=== PATIENT | female | born 1985 | race Caucasian/White ===

== ENCOUNTER 2018-01-26 09:27 | Outpatient (CLI) | payer BC ==
[2018-01-26 10:50] VITALS: PULSE 68; RESP 18; TEMP 97.9
[2018-01-26 10:50] LABS: Appearance,Urine Clear (Clear); Bacteria,Urine Rare /hpf; Bilirubin,Urine Negative (Negative); Blood,Urine Negative (Negative); Color,Urine Yellow; Glucose,Urine (UA) Negative (Negative); Ketones,Urine Negative (Negative); Leukocyte Esterase,Urine Negative (Negative); Nitrite,Urine Negative (Negative); Protein,Urine 2+ (Negative); RBC,Urine <1 /hpf (0-5); Specific Gravity,Urine 1.009 (1.001-1.035); Squamous Epithelial Cell,Urine <1 /hpf (0-4); Urobilinogen,Urine <2.0 mg/dL (<2.0); WBC,Urine 2 /hpf (0-5)
[2018-01-26 10:59] LABS: Basophils % (A) 0 %; Eosinophils # (A) 0.1 k/uL (0-0.7); Eosinophils % (A) 1 %; HCT 41.5 % (34.0-46.0); HGB 14.2 gm/dL (11.4-16.0); Lymphocytes # (A) 1.3 k/uL (1.0-4.8); Lymphocytes % (A) 11 %; MCH 30.1 pg (25.0-35.0); MCHC 34.3 g/dL (31.0-37.0); MCV 87.7 fL (80.0-100.0); Mean Platelet Volume 8.4; Monocytes # (A) 0.7 k/uL (0-1.0); Monocytes % (A) 6 %; Neutrophils # (A) 9.8 k/uL (1.3-7.7); Neutrophils % (A) 82 %; Platelet Count 137 k/uL (150-450); RBC 4.73 m/uL (3.80-5.40); RDW 13.5 % (11.5-15.5); WBC 11.9 k/uL (3.8-10.6)
[2018-01-26 11:12] LABS: ALT 158 U/L (9-52); AST 156 U/L (14-36); Blood Urea Nitrogen 14 mg/dL (7-17); LDH 803 U/L (313-618); Uric Acid 5.4 mg/dL (3.7-7.4)
[2018-01-26] MEDS ORDERED: LACTATED RINGERS 1,000 ML IV SCH (11:15)
[2018-01-26] MEDS ORDERED: MAGNESIUM SULFATE-WATER PMX 4 GM in WATER FOR INJECTION 50 50ML.BAG IVPB STA (11:21)
[2018-01-26] MEDS ORDERED: MAGNESIUM SULFATE-D5W PMX 1 GM in DEXTROSE/WATER 1 100ML.BAG IVPB SCH (11:30)
[2018-01-26] MEDS ORDERED: BETAMET ACET-BETAMETH SOD PHOS 6 MG/ML VIAL IM SCH (11:30)
--- NOTE | 2018-01-26 11:51 | US ---
EXAMINATION TYPE: US OB >= 14 wk fetus DATE OF EXAM: 01/26/2018 COMPARISON: None CLINICAL HISTORY: 32-year-old female referred for COMPLETE U/S. Patient HAS ELEVATED B/P TECHNIQUE: Transabdominal (TA) FINDINGS: GESTATIONAL AGE / DATING Physician Established: (29 weeks/0 days) EDC: 04/13/28 Dates by LMP: (29 weeks/0 days) EDC: 04/13/18 Dates by First Scan: No previous at this location Dates by Current Scan: (28 weeks/4 days) EDC: 04/16/18 Beta HCG (if available): SURVEY IUP: Single PLACENTA: Fundal. There appears to be an accessory lobe anteriorly. PREVIA: No Previa ANTELMO: 10.10 cm CERVICAL LENGTH (transabdominal: norm > 3.0cm): Not well seen, estimated at 3.3 cm BIOMETRY PRESENTATION: Breech LIE: Longitudinal BPD: 7.0 cm 28 weeks / 1 days (-1.07 standard deviation) HC: 26.2 cm 28 weeks / 4 days (-1.35 standard deviation) AC: 24.0 cm 28 weeks / 2 days (-0.75 standard deviation) FL: 5.5 cm 29 weeks / 1 days (-0.37 standard deviation) ESTIMATED WEIGHT IN GRAMS: 1244 grams ESTIMATED WEIGHT IN LBS/OZ: 2lbs. 12 oz. WEIGHT PERCENTAGE BASED ON ESTABLISHED DATES: 22% HC/AC: 1.1 FL/AC: 23 HEART RATE: 139 bpm RHYTHM: Normal [employer] notes: Succenturiate vs bilobed placenta. IMPRESSION: 1. Single live intrauterine with estimated gestational age of 29 weeks 0 days by LMP. Curre nt ultrasound biometry is smaller but concordant (28 weeks 4 days) placing the child at the 22nd perc entile for weight. 2. ANTELMO lower end of normal (10.1 cm). 3. Fundal placenta with an anterior succenturiate lobe. No placenta previa. 4. Note that survey was not performed due to the emergent nature of the exam.
[2018-01-26] MEDS ORDERED: MAGNESIUM SULFATE-WATER PMX 20 GM in WATER FOR INJECTION 1 500ML.BAG IV SCH (12:00)
--- NOTE | 2018-01-26 12:15 | P.HPOB ---
History of Present Illness H&P Date: 01/26/18 Chief Complaint: Epigastric pain This patient is a pleasant 32-year-old 1 para 0 female estimated date of confinement 04/13/2018 estimated gestational age 29-0/7 weeks which is confirmed by ultrasound who called the office to this morning with complaints of upper abdominal pain. Patient was sent to labor and delivery and blood pressures here have ranged from 148-167/97-112. Patient's blood pressures are 100/60 and 120/70. Patient denies headaches, blurry vision. This has been under the care of Dr. Martins and had appears to be uncomplicated previously. Evaluation here shows significant liver function elevations and elevated lactate dehydrogenase. Patient also has 2+ protein and platelets are 137. Nonstress testing is reactive. Obstetrical ultrasound shows a appropriately grown fetus with normal ANTELMO. Review of Systems Constitutional: Reports as per HPI Gastrointestinal: Reports heartburn, Reports indigestion Genitourinary: Reports as per HPI, Reports Menstruation: Reports amenorrhea Past Medical History Past Medical History: No Reported History Additional Past Medical History / Comment(s): Patient has a history of attention deficit disorder and irritable bowel syndrome. History of Any Multi-Drug Resistant Organisms: None Reported Additional Past Surgical History / Comment(s): Inguinal hernia repair Past Anesthesia/Blood Transfusion Reactions: No Reported Reaction Past Psychological History: No Psychological Hx Reported Smoking Status: Never smoker Past Alcohol Use History: None Reported Past Drug Use History: None Reported Medications and Allergies Home Medications Medication Instructions Recorded Confirmed Type Acetaminophen Tab [Tylenol] 01/26/18 History Pnv,Calcium 72/Iron/Folic Acid 1 tab PO DAILY 01/26/18 01/26/18 History [ Plus Tablet] diphenhydrAMINE HCL [Benadryl] 25 mg PO HS 01/26/18 01/26/18 History Allergies Allergy/AdvReac Type Severity Reaction Status Date / Time codeine Allergy Abdominal Verified 01/26/18 09:49 Pain Exam - Vital Signs Vital signs: Vital Signs Temp Pulse Resp Pulse Ox 01/26/18 09:54 97.9 F 68 18 98 Intake and Output 01/25/18 01/26/18 01/26/18 22:59 06:59 14:59 Other: Weight 84.822 kg - OBG Physical Exam Abdomen: bowel sounds normal, no diffuse tenderness, no bruit present, no guarding noted, no hepatomegaly, no splenomegaly, no mass Results Obstetrical ultrasound shows a appropriate grown fetus 1244 g with normal ANTELMO. Result Diagrams: 01/26/18 10:46 01/26/18 10:46 Abnormal Lab Results - Last 24 Hours (Table) 01/26/18 01/26/18 01/26/18 Range/Units 09:55 10:46 10:46 WBC 11.9 H (3.8-10.6) k/uL Plt Count 137 L (150-450) k/uL Neutrophils # 9.8 H (1.3-7.7) k/uL AST 156 H (14-36) U/L ALT 158 H (9-52) U/L Lactate Dehydrogenase 803 H (313-618) U/L Urine Protein 2+ H (Negative) Urine Bacteria Rare H (None) /hpf Assessment and Plan Assessment: This is a pleasant 32-year-old 1 para 0 female 29-0/7 weeks gestation who is admitted to labor and delivery for evaluation of epigastric pain and evaluation is consistent with severe preeclampsia and evolving HELPP syndrome. I have contacted Dr. Christopher Hobson at [facility] and he has agreed to accept her transfer. She is already being treated with magnesium sulfate and is received one dose of Celestone. Dr. Hobson and I discussed treatment of her blood pressure at this time and he is recommended waiting at this time on any antihypertensives because we are starting magnesium therapy. I have had a long discussion with the patient, her , and the family in the understand the severity of this condition and urgency of her being treated and transferred. He agreed to transfer to [facility]. (1) Severe pre-eclampsia Current Visit: Yes Status: Acute Code(s): O14.10 - SEVERE PRE-ECLAMPSIA, UNSPECIFIED TRIMESTER SNOMED Code(s): 92721366 (2) HELLP syndrome (HELLP), third trimester Current Visit: Yes Status: Acute Code(s): O14.23 - HELLP SYNDROME (HELLP), THIRD TRIMESTER SNOMED Code(s): 25864961
--- NOTE | 2018-01-26 12:23 | P.DS ---
Providers Expected date of discharge: 01/26/18 Attending physician: Eleuterio Bailey Primary care physician: Stated None - Discharge Diagnosis(es) (1) Severe pre-eclampsia Current Visit: Yes Status: Acute (2) HELLP syndrome (HELLP), third trimester Current Visit: Yes Status: Acute Hospital Course: Please see dictated H&P for intimate details of this patient's admission. Brief summary this is a pleasant 32-year-old 1 para 0 female 29-0/7 weeks gestation who is admitted to labor and delivery with complaints of epigastric pain. Patient's blood pressure is elevated and preeclampsia labs were significantly elevated with the impression of evolving help syndrome. Patient was placed on magnesium sulfate and given a dose of Celestone. I contacted Dr. Christopher Hobson at [facility] and arrange transfer immediately for further care. Patient was transferred via EMS in stable condition. Patient Condition at Discharge: Stable Plan - Discharge Summary New Discharge Prescriptions: No Action Pnv,Calcium 72/Iron/Folic Acid [ Plus Tablet] 1 tab PO DAILY Acetaminophen Tab [Tylenol] diphenhydrAMINE HCL [Benadryl] 25 mg PO HS Discharge Medication List Acetaminophen Tab [Tylenol] 01/26/18 [History] Pnv,Calcium 72/Iron/Folic Acid [ Plus Tablet] 1 tab PO DAILY 01/26/18 [ History] diphenhydrAMINE HCL [Benadryl] 25 mg PO HS 01/26/18 [History] Discharge Disposition: OTHER INSTITUTION NOT DEFINED
--- NOTE | 2018-01-26 16:22 | P.MSEPDOC ---
Presenting Problems - Arrival Data Date of Arrival on Unit: 01/26/18 Time of Arrival on Unit: 09:37 Mode of Transport: Portable - Complaint OB-Reason for Admission/Chief Complaint: Other Comment: pt arrived c/o upper abd cramping and heaviness feeling in upper abd area when she breaths inward withshe states some sob on inhalling Medical History - Information : 1 Para: 0 Term: 0 : 0 Abortions: Spontaneous or Elective: 0 Number of Living Children: 0 - Gestational Age Gestational Age by VALENCIA (wks/days): 29 Weeks and 0 Days Review of Systems - Review of Systems Constitutional: No problems Breast: No problems ENT: No problems Cardiovascular: No problems Respiratory: No problems Gastrointestinal: Diarrhea Genitourinary: No problems Musculoskeletal: No problems Neurological: No problems Skin: No problems Comment: pt c/o having diarrhea today Vital Signs - Temperature Temperature: 97.9 F Temperature Source: Oral - Pulse Right Brachial Pulse Rate: 68 Pulse Assessment Method: Automatic Cuff - Respirations Respiratory Rate: 18 Oxygen Delivery Method: Room Air O2 Sat by Pulse Oximetry: 98 Medical Screen Scoring (Pre) - Cervical Exam Dilation: 0 cm = 0 Membranes: Intact - Uterine Contractions Frequency: > 5 minutes apart = 1, < 36 weeks = 6 Duration: N/A - Maternal Vital Signs Maternal Temperature: N/A Maternal Blood Pressure: >159/109 = 8 Signs of Preeclampsia: Epigastric Pain = 1 Maternal Respirations: N/A - Pain Assessment Pain Location and Character: Abdomen Pain Scale Used: Numeric (1 - 10) Pain Intensity: 3 Pain Management Goal: 1 Pain Description: Cramping, Pressure Pain Radiation Location: n/a Pain Frequency: Occasional Pain Duration: 30 Pain Duration Units: Minutes Pain Behavior: Vocalization Pain Aggravating Factors: Breathing, Position Non-Pharmacological Interventions: Position/Reposition - Maternal Trauma Maternal Trauma: N/A - Assessment Baseline FHR: 140 Heart Rate - NICHD Category: Category I (Normal) = 0 NST: Reactive Position: N/A - Total Score Total Score (Pre): 16 Physician Notification (Pre) - Physician Notified Physician Notified Date: 01/26/18 Physician Notified Time: 10:10 Spoke With: dr isaac Milligan Order Received: Yes - Notification Comment Comment: preeclampsia lab orders urinalysis, and complete ob u/s Physician Notification (Post) - Physician Notified Physician Notified Date: 01/26/18 New Order Received: Yes - Notification Comment Comment: pt being transferred to [facility] for dr greenfield care per dr cortes Disposition - Disposition OB Disposition: Transfer to other dept./facility I agree with the RN Medical Screening Exam: Yes Risk & Benefit of care provided described in d/c instruction: Yes Diagnosis: SEVERE PRE-ECLAMPSIA, THIRD TRIMESTER
== END 2018-01-26 12:45 | disposition other institution (70) ==
LOC: FBPOP 09:27
PROVIDERS: ATTEND Obstetrics & Gynecology
DX: O14.13 Severe pre-eclampsia, third trimester (principal); Z3A.29 29 weeks gestation of pregnancy
CPT/HCPCS: 59025; 99215; 96361; 96365; 96372; 82565; 83615; 84450; 84460; 84520; 84550; 85025; 81001; 76805; J0702; J3475 ×2

== ENCOUNTER 2019-09-27 16:33 | Emergency (ER) | payer BC ==
[2019-09-27] MEDS ORDERED: SODIUM CHLORIDE 0.9% 500 ML 500 ML IV ONE (18:02)
[2019-09-27 19:51] LABS: Appearance,Urine Clear (Clear); Basophils % (A) 0 %; Bilirubin,Urine Negative (Negative); Blood,Urine Negative (Negative); Color,Urine Light Yellow; Eosinophils # (A) 0.1 k/uL (0-0.7); Eosinophils % (A) 1 %; Glucose,Urine (UA) Negative (Negative); HCT 43.9 % (34.0-46.0); Ketones,Urine Negative (Negative); Leukocyte Esterase,Urine Negative (Negative); Lymphocytes # (A) 1.5 k/uL (1.0-4.8); Lymphocytes % (A) 17 %; MCH 31.6 pg (25.0-35.0); MCV 92.7 fL (80.0-100.0); Monocytes # (A) 0.4 k/uL (0-1.0); Monocytes % (A) 5 %; Neutrophils # (A) 6.8 k/uL (1.3-7.7); Neutrophils % (A) 76 %; Nitrite,Urine Negative (Negative); Platelet Count 298 k/uL (150-450); Protein,Urine Negative (Negative); RBC 4.74 m/uL (3.80-5.40); Specific Gravity,Urine 1.004 (1.001-1.035); Urobilinogen,Urine <2.0 mg/dL (<2.0)
[2019-09-27 20:00] LABS: ALT 62 U/L (9-52); AST 41 U/L (14-36); African American GFR (CKD) >90 (>60 ml/min/1.73 sqM); Albumin 4.6 g/dL (3.5-5.0); Alkaline Phosphatase 58 U/L (38-126); Anion Gap 8 mmol/L; Blood Urea Nitrogen 12 mg/dL (7-17); Calcium 9.6 mg/dL (8.4-10.2); Carbon Dioxide 27 mmol/L (22-30); Chloride 105 mmol/L (98-107); Glucose 99 mg/dL (74-99); Non-African American GFR(CKD) >90 (>60 ml/min/1.73 sqM); Potassium 4.1 mmol/L (3.5-5.1); Sodium 140 mmol/L (137-145); Total Bilirubin 0.6 mg/dL (0.2-1.3); Total Protein 7.9 g/dL (6.3-8.2)
--- NOTE | 2019-09-27 20:05 | US ---
EXAMINATION TYPE: US transvaginal DATE OF EXAM: 09/27/2019 COMPARISON: NONE CLINICAL HISTORY: Pain x 2 days. Vaginal bleeding. HX . . TECHNIQUE: Transvaginal (TV). Date of LMP: 08/06/2019 EXAM MEASUREMENTS: Uterus: 7.6 x 5.2 x 4.3 cm Endometrial Stripe: 0.34 cm Right Ovary: 3.1 x 1.6 x 1.8 cm Left Ovary: 2.9 x 1.7 x 1.5 cm 1. Uterus: Anteverted Hyperechoic area seen right uterus measurin.4 x 0.2 x 0.2 cm. Small amou nt of hypoechoic fluid seen superior to uterus. 2. Endometrium: No acute process. 3. Right Ovary: Subcentimeter anechoic areas seen. Arterial waveform seen. Limited venous waveform. Difficulty obtaining venous waveform. 4. Left Ovary: Subcentimeter anechoic areas seen. Arterial and venous waveforms obtained. 5. Bilateral Adnexa: Appear wnl 6. Posterior cul-de-sac: Fluid is seen. IMPRESSION: NO DEFINITE ACUTE PROCESS.
--- NOTE | 2019-09-27 20:33 | ED ---
General Adult HPI - General Chief complaint: Vaginal Bleeding Stated complaint: Poss miscarriage Time Seen by Provider: 09/27/19 17:37 Source: patient, RN notes reviewed, old records reviewed Mode of arrival: ambulatory Limitations: no limitations - History of Present Illness Initial comments: 33-year-old female patient presents to ED for chief complaint of vaginal bleeding. Patient reports that she is a . Patient reports that she stopped taking oral contraceptives approximately 6 weeks ago. Patient reports that she has not had a partial. Since. Patient reports that she passed a large blood clot yesterday. Had a lot of vaginal bleeding today as well. Patient reports that has decreased to spotting at this point. Patient force that she h as had some mild dizziness last 2 days. Reports that the week before she was having some symptoms that she had previous surgery and she is . This includes some mild nausea in the morning. Patient reports that she has taken a test almost everyday and has been negative. Denies any other complaints at this time. Systemic: Pt denies fatigue, fever/chills, rash. Pt denies weakness, night sweats, weight loss. Neuro: Pt denies headache, visual disturbances, syncope or pre-syncope. HEENT: Pt denies ocular discharge or irritation, otalgia, rhinorrhea, pharyngitis or notable lymphadenopathy. Cardiopulmonary: Pt denies chest pain, SOB, heart palpitations, dyspnea on exertion. Abdominal/GI: Pt denies abdominal pain, n/v/d. : Pt denies dysuria, burning w/ urination, frequency/urgency. Denies new onset urinary or bowel incontinence. MSK: Pt denies myalgia, loss of strength or function in extremities. Neuro: Pt denies new onset weakness, paresthesias. - Related Data Home Medications Medication Instructions Recorded Confirmed Acetaminophen Tab [Tylenol] 01/26/18 Pnv,Calcium 72/Iron/Folic Acid 1 tab PO DAILY 01/26/18 01/26/18 [ Plus Tablet] diphenhydrAMINE HCL [Benadryl] 25 mg PO HS 01/26/18 01/26/18 Allergies Allergy/AdvReac Type Severity Reaction Status Date / Time codeine Allergy Abdominal Verified 09/27/19 17:09 Pain Review of Systems ROS Statement: Those systems with pertinent positive or pertinent negative responses have been documented in the HPI. ROS Other: All systems not noted in ROS Statement are negative. Past Medical History Past Medical History: No Reported History Additional Past Medical History / Comment(s): Patient has a history of attention deficit disorder and irritable bowel syndrome. History of Any Multi-Drug Resistant Organisms: None Reported Past Surgical History: Section, Hernia Repair Additional Past Surgical History / Comment(s): Inguinal hernia repair Past Anesthesia/Blood Transfusion Reactions: No Reported Reaction Past Psychological History: ADD/ADHD, Anxiety, Depression Smoking Status: Never smoker Past Alcohol Use History: Occasional Past Drug Use History: None Reported General Exam - General Exam Comments Initial Comments: Constitutional: NAD, AOX3, Pt has pleasant affect. HEENT: NC/AT, trachea midline, neck supple, no lymphadenopathy. Posterior pharynx non erythematous, without exudates. External ears appear normal, without discharge. Mucous membranes moist. Eyes PERRLA, EOM intact. There is no scleral icterus. No pallor noted. Cardiopulmonary: RRR, no murmurs, rubs or gallops, no JVD noted. Lungs CTAB in anterior and posterior britt. No peripheral edema. Abdominal exam: Abdomen soft and non-distended. Abdomen non-tender to palpation in all 4 quadrants. Bowel sounds active in LLQ. No hepatosplenomegaly. No ecchymosis Neuro: CN II-XII intact. No nuchal rigidity. No raccon eyes, no garcia sign, no hemotympanum. No cervical spinal tenderness. MSK: No posterior calf tenderness bilaterally, homans sign negative bilaterally. Posterior tibialis and radial pulse +2 bilaterally. Sensation intact in upper and lower extremities. Full active ROM in upper and lower extremities, 5/5 stregnth. Limitations: no limitations Course Vital Signs 09/27/19 17:05 Temperature 98.0 F Pulse Rate 97 Respiratory 18 Rate Blood Pressure 139/87 O2 Sat by Pulse 100 Oximetry Medical Decision Making - Medical Decision Making 33-year-old female patient presents to ED for chief complaint of vaginal bleeding. Patient reports that she is a . Patient reports that she stopped taking oral contraceptives approximately 6 weeks ago. Patient reports that she has not had a partial. Since. Patient reports that she passed a large blood clot yesterday. Had a lot of vaginal bleeding today as well. Patient reports that has decreased to spotting at this point. Patient force that she has had some mild dizziness last 2 days. Reports that the week before she was having some symptoms that she had previous surgery and she is . This includes some mild nausea in the morning. Patient reports that she has taken a test almost everyday and has been negative. Denies any other complaints at this time. Patient vital signs stable, afebrile. Laboratory investigations are non-impressive. Hb 15. UA negative. HCG negative. EKG nonischemic. Transvaginal vaginal ultrasound did not display definite acute process. Patient not experiencing any pain. Patient likely experiencing irregular menses due to recent DC of oral contraceptives. Will follow up with PCP initially, and ob if irregular bleeding continues. Will return to ER if condition worsens. Case discussed with Dr. Cosby. - Lab Data Result diagrams: 09/27/19 18:55 09/27/19 18:55 Lab Results 09/27/19 09/27/19 09/27/19 Range/Units 18:55 18:55 18:55 WBC 9.0 (3.8-10.6) k/uL RBC 4.74 (3.80-5.40) m/uL Hgb 15.0 (11.4-16.0) gm/dL Hct 43.9 (34.0-46.0) % MCV 92.7 (80.0-100.0) fL MCH 31.6 (25.0-35.0) pg MCHC 34.0 (31.0-37.0) g/dL RDW 12.0 (11.5-15.5) % Plt Count 298 (150-450) k/uL Neutrophils % 76 % Lymphocytes % 17 % Monocytes % 5 % Eosinophils % 1 % Basophils % 0 % Neutrophils # 6.8 (1.3-7.7) k/uL Lymphocytes # 1.5 (1.0-4.8) k/uL Monocytes # 0.4 (0-1.0) k/uL Eosinophils # 0.1 (0-0.7) k/uL Basophils # 0.0 (0-0.2) k/uL Sodium 140 (137-145) mmol/L Potassium 4.1 (3.5-5.1) mmol/L Chloride 105 (98-107) mmol/L Carbon Dioxide 27 (22-30) mmol/L Anion Gap 8 mmol/L BUN 12 (7-17) mg/dL Creatinine 0.76 (0.52-1.04) mg/dL Est GFR (CKD-EPI)AfAm >90 (>60 ml/min/1.73 sqM) Est GFR (CKD-EPI)NonAf >90 (>60 ml/min/1.73 sqM) Glucose 99 (74-99) mg/dL Calcium 9.6 (8.4-10.2) mg/dL Total Bilirubin 0.6 (0.2-1.3) mg/dL AST 41 H (14-36) U/L ALT 62 H (9-52) U/L Alkaline Phosphatase 58 (38-126) U/L Total Protein 7.9 (6.3-8.2) g/dL Albumin 4.6 (3.5-5.0) g/dL Urine Color Light Yellow Urine Appearance Clear (Clear) Urine pH 7.0 (5.0-8.0) Ur Specific [place] 1.004 (1.001-1.035) Urine Protein Negative (Negative) Urine Glucose (UA) Negative (Negative) Urine Ketones Negative (Negative) Urine Blood Negative (Negative) Urine Nitrite Negative (Negative) Urine Bilirubin Negative (Negative) Urine Urobilinogen <2.0 (<2.0) mg/dL Ur Leukocyte Esterase Negative (Negative) Urine HCG, Qual (Not Detectd) 09/27/19 Range/Units 18:55 WBC (3.8-10.6) k/uL RBC (3.80-5.40) m/uL Hgb (11.4-16.0) gm/dL Hct (34.0-46.0) % MCV (80.0-100.0) fL MCH (25.0-35.0) pg MCHC (31.0-37.0) g/dL RDW (11.5-15.5) % Plt Count (150-450) k/uL Neutrophils % % Lymphocytes % % Monocytes % % Eosinophils % % Basophils % % Neutrophils # (1.3-7.7) k/uL Lymphocytes # (1.0-4.8) k/uL Monocytes # (0-1.0) k/uL Eosinophils # (0-0.7) k/uL Basophils # (0-0.2) k/uL Sodium (137-145) mmol/L Potassium (3.5-5.1) mmol/L Chloride (98-107) mmol/L Carbon Dioxide (22-30) mmol/L Anion Gap mmol/L BUN (7-17) mg/dL Creatinine (0.52-1.04) mg/dL Est GFR (CKD-EPI)AfAm (>60 ml/min/1.73 sqM) Est GFR (CKD-EPI)NonAf (>60 ml/min/1.73 sqM) Glucose (74-99) mg/dL Calcium (8.4-10.2) mg/dL Total Bilirubin (0.2-1.3) mg/dL AST (14-36) U/L ALT (9-52) U/L Alkaline Phosphatase (38-126) U/L Total Protein (6.3-8.2) g/dL Albumin (3.5-5.0) g/dL Urine Color Urine Appearance (Clear) Urine pH (5.0-8.0) Ur Specific [place] (1.001-1.035) Urine Protein (Negative) Urine Glucose (UA) (Negative) Urine Ketones (Negative) Urine Blood (Negative) Urine Nitrite (Negative) Urine Bilirubin (Negative) Urine Urobilinogen (<2.0) mg/dL Ur Leukocyte Esterase (Negative) Urine HCG, Qual Not Detected (Not Detectd) - EKG Data -: EKG Interpreted by Me (and Dr Estrada ) EKG Comments: Ventricular rate 80,. Follow 110, QRS 94, QT/QTc 402/463. Sinus rhythm with sinus arrythemia, otherwise normal EKG. No concern for acute ischemia. Disposition Clinical Impression: Vaginal bleeding Disposition: HOME SELF-CARE Condition: Stable Instructions (If sedation given, give patient instructions): Dysmenorrhea (ED) Additional Instructions: Follow-up with primary care provider tomorrow. Return to ER if condition worsens in any way. Return to ER if heavy vaginal bleeding returns. Is patient prescribed a controlled substance at d/c from ED?: No Referrals: Benja Rice MD [Primary Care Provider] - 1-2 days
[2019-09-27 20:47] VITALS: BP 114/87; PULSE 87; RESP 16; TEMP 98.1
== END 2019-09-27 20:46 | disposition home or self-care (01) ==
LOC: EC 16:33
DX: N93.9 Abnormal uterine and vaginal bleeding, unspecified (principal); Z32.02 Encounter for pregnancy test, result negative; R42 Dizziness and giddiness; Z88.5 Allergy status to narcotic agent
CPT/HCPCS: 36415; 76830; 80053; 81003; 81025; 85025; 93005; 93975; 96360; 96361; 99285

== ENCOUNTER → 2020-05-08 | Outpatient (CLI) | payer BC | END | disposition home or self-care (01) | LOC: LABWHC1 13:46 | PROVIDERS: ATTEND Obstetrics & Gynecology | DX: Z34.81 Encounter for supervision of other normal pregnancy, first trimester (principal) | CPT/HCPCS: 36415; 82105; 82677; 84702; 86336 ==

== ENCOUNTER 2020-10-12 14:42 | Outpatient (CLI) | payer BC ==
--- NOTE | 2020-11-10 20:05 | P.MSEPDOC ---
Presenting Problems - Arrival Data Date of Arrival on Unit: 10/12/20 Time of Arrival on Unit: 14:42 Mode of Transport: Ambulatory Disposition - Disposition Discharge Date: 10/12/20 Discharge Time: 15:02 I agree with the RN Medical Screening Exam: No Case reviewed; plan agreed upon as documented in EMR&OBIX.: Yes Diagnosis: GESTATIONAL HTN W/O SIGNIFICANT PROTEINURIA, UNSP TRIMESTER
== END 2020-10-12 15:02 | disposition home or self-care (01) ==
LOC: FBPOP 14:42
PROVIDERS: ATTEND Obstetrics & Gynecology
DX: O13.3 Gestational [pregnancy-induced] hypertension without significant proteinuria, third trimester (principal); Z3A.00 Weeks of gestation of pregnancy not specified
CPT/HCPCS: 59025

== ENCOUNTER 2020-10-16 06:44 | Inpatient (IN) | payer BC ==
[2020-10-15 13:57] VITALS: BMI 29.9
--- NOTE | 2020-10-15 19:10 | P.HPOB ---
History of Present Illness H&P Date: 10/15/20 Chief Complaint: Previous section with unfavorable cervix. History of HELLP syndro This patient is a pleasant 34-year-old 2 para 1 female estimated date of confinement 10/21/2020 estimated gestational age 39-2/7 weeks who is presenting to labor and delivery for elective repeat section. Patient's history is that in her last she developed HELLP syndrome at 29 weeks and had a section and maternal- medicine. Patient initially wanted to have a trial of this however unfortunately has an unfavorable cervix and is now over 39 weeks and therefore recommended proceed with delivery, therefore by section. Patient's has been watched closely with weekly blood work and nonstress tests. She's been on a baby aspirin this and blood pressures have remained normal. Patient also had a marginal previa and a bilobed placenta. The previa did resolve. Review of Systems Genitourinary: Reports Menstruation: Reports amenorrhea Past Medical History Past Medical History: GERD/Reflux Additional Past Medical History / Comment(s): hx irritable bowel syndrome. past hx of excercise induced asthma, hx of HELLP syndrome and pre-eclampsia with first History of Any Multi-Drug Resistant Organisms: None Reported Past Surgical History: Section, Hernia Repair Additional Past Surgical History / Comment(s): Inguinal hernia repair x2 Past Anesthesia/Blood Transfusion Reactions: Previous Problems w/ Anesthesia Additional Past Anesthesia/Blood Transfusion Reaction / Comment(s): hx of hard time waking up Past Psychological History: ADD/ADHD, Anxiety Smoking Status: Never smoker Past Alcohol Use History: None Reported Past Drug Use History: None Reported - Past Family History Mother Family Medical History: No Reported History Medications and Allergies Home Medications Medication Instructions Recorded Confirmed Type Pnv,Calcium 72/Iron/Folic Acid 1 tab PO DAILY 01/26/18 10/15/20 History [ Plus Tablet] Cetirizine HCl [Zyrtec] 1 tab PO ONCE 10/12/20 10/15/20 History Acetaminophen [Tylenol] 650 mg PO HS 10/15/20 10/15/20 History Aspirin [Adult Low Dose Aspirin EC] 81 mg PO DAILY 10/15/20 10/15/20 History Cholecalciferol [Vitamin D3 (25 1,000 unit PO DAILY 10/15/20 10/15/20 History Mcg = 1000 Iu)] Omeprazole Magnesium [PriLOSEC OTC] 20 mg PO DAILY 10/15/20 10/15/20 History Allergies Allergy/AdvReac Type Severity Reaction Status Date / Time codeine Allergy Abdominal Verified 10/15/20 13:09 Pain Exam Intake and Output 10/15/20 10/15/20 10/15/20 06:59 14:59 22:59 Other: Weight 93.44 kg - OBG Physical Exam Abdomen: bowel sounds normal, no diffuse tenderness, no bruit present, no guarding noted, no hepatomegaly, no splenomegaly, no mass Vulva: both: normal Vagina: normal moisture, no discharge Cervix: no lesion (Cervix is closed and thick.), no discharge Uterus: enlarged (Fundal height 39 cm) Results blood work shows she is A positive, rubella immune, RPR nonreactive, hepatitis B negative, quad screen was negative, ultrasounds showed normal anatomy with bilobed placenta. Glucola was normal. Group B strep was negative. Assessment and Plan Assessment: This is a pleasant 34-year-old 2 para 1 female 39-2/7 week gestational age who presents for repeat section. Plan is repeat low transverse section. Patient I discussed the surgery and risks including risks of infection, bleeding, possible injury to bowel, bladder, vessels, and/or other organs. All the patient's questions are answered and a written consent is obtained. (1) 39 weeks gestation of Status: Acute Code(s): Z3A.39 - 39 WEEKS GESTATION OF SNOMED Code(s): 78748771 (2) Previous delivery affecting Status: Acute Code(s): O34.219 - MATERNAL CARE FOR UNSP TYPE SCAR FROM PREVIOUS DEL SNOMED Code(s): 770682556
[2020-10-16] MEDS ORDERED: CITRIC ACID-SODIUM CITRATE 15 ML CUP PO ONE (10:24)
[2020-10-16] MEDS ORDERED: LACTATED RINGERS 1,000 ML IV ONE (10:24)
[2020-10-16 10:54] LABS: Basophils % (A) 0 %; Eosinophils % (A) 1 %; HCT 39.5 % (34.0-46.0); HGB 13.7 gm/dL (11.4-16.0); Lymphocytes # (A) 1.4 k/uL (1.0-4.8); Lymphocytes % (A) 17 %; MCH 31.1 pg (25.0-35.0); MCHC 34.7 g/dL (31.0-37.0); MCV 89.7 fL (80.0-100.0); Mean Platelet Volume 7.2; Monocytes # (A) 0.5 k/uL (0-1.0); Monocytes % (A) 6 %; Neutrophils % (A) 74 %; Platelet Count 256 k/uL (150-450); RBC 4.41 m/uL (3.80-5.40); RDW 13.3 % (11.5-15.5); WBC 8.1 k/uL (3.8-10.6)
[2020-10-16] MEDS: LACTATED RINGERS 1,000 ML IV SCH ×3 (11:48→22:47)
[2020-10-16] MEDS ORDERED: ONDANSETRON 4 MG/2 ML VIAL ONE (12:20)
[2020-10-16] MEDS ORDERED: NALBUPHINE 10 MG/ML (1 ML AMP) ONE (12:20)
[2020-10-16] MEDS ORDERED: MORPHINE SULFATE (PF) 0.3 MG/0.3 ML SYR ONE (12:20)
[2020-10-16] MEDS ORDERED: KETOROLAC 15 MG/ML 1 ML VIAL ONE (12:20)
[2020-10-16] MEDS ORDERED: PHENYLEPHRINE 10 MG/ML VIAL ONE (12:20)
[2020-10-16] MEDS ORDERED: diphenhydrAMINE 25 MG CAP PO PRN (13:11)
[2020-10-16] MEDS ORDERED: LANOLIN CREAM 5 GM TUBE TOPICAL PRN (13:11)
[2020-10-16] MEDS ORDERED: METOCLOPRAMIDE 5 MG/ML 2 ML VIAL IVP PRN (13:11)
[2020-10-16] MEDS ORDERED: ACETAMINOPHEN TAB 325 MG TAB PO PRN (13:11)
[2020-10-16] MEDS ORDERED: SIMETHICONE 80 MG CHEWABLE PO PRN (13:11)
[2020-10-16] MEDS ORDERED: ONDANSETRON 4 MG/2 ML VIAL IVP PRN (13:11)
[2020-10-16] MEDS ORDERED: diphenhydrAMINE 50 MG/ML 1 ML VIAL IVP PRN (13:11)
[2020-10-16] MEDS ORDERED: NALOXONE 0.4 MG/ML 1 ML VIAL IV PRN (13:11)
[2020-10-16] MEDS ORDERED: ZOLPIDEM 5 MG TAB PO PRN (13:11)
[2020-10-16] MEDS ORDERED: OXYTOCIN 20 UNITS/1000 ML NS 1,000 ML IV SCH (13:15)
--- NOTE | 2020-10-16 13:22 | P.OP ---
Date of Procedure: 10/16/20 Preoperative Diagnosis: #1: 39-2/7 week intrauterine . #2: Previous section with unfavorable cervix desires repeat #3: History of HELLP syndrome Postoperative Diagnosis: Same Procedure(s) Performed: Repeat low transverse section Anesthesia: spinal Surgeon: Eleuterio Bailey Informatics Analyst #1: Makenna Martins Estimated Blood Loss (ml): 800 Pathology: other (Placenta) Condition: stable Disposition: floor Indications for Procedure: Please see dictated H&P for intimate details of this patient's admission. Brief summary this is a pleasant 34-year-old 2 para 1 female 39-2/7 weeks gestation who is admitted to labor and delivery for elective repeat section secondary to previous section and unfavorable cervix. Patient's history is such that she had a previous section at 29 weeks for help syndrome. Patient initially wanted to this however cervix was unfavorable she is now over 39 weeks and I recommended proceed with delivery. Patient also has a known history of bilobed placenta. Patient understands this surgery and risks including risks of infection, bleeding, possible injury bowel, bladder, vessels, and/or other organs. All the patient's questions are answered and a written consent is obtained. Operative Findings: This is a vigorous viable male infant Apgars are 9 and 9 delivery time is 1236 hrs. has spontaneous respiration and good cry and grossly appears normal. Patient has a bilobed placenta. Uterus tubes and ovaries appear normal for term gestation. Description of Procedure: This patient has a Mccullough catheter placed to straight drain. She is subsequently taken to the operating room and after adequate timeout spinal anesthetic is administered without incident. With an adequate level of anesthesia she has abdominal prep and drape. Scalpels and taken the previous Pfannenstiel incision is excised. A second scalpel is taken down the fascia and the fascia scored with a knife. Fascial incision extended bilaterally using the Bowers scissors. Fascia is then dissected off the rectus muscles sharply. Rectus muscles are the peritoneum identified and entered sharply. Peritoneal incision extended superior and inferior without difficulty. Bladder blade is then placed. Bladder peritoneum was then taken sharply off the lower uterine segment. Scalpels and taken low transverse uterine incision is made. Using a hemostat I enter the uterine cavity bluntly and there is loss of clear fluid 's head is then guided through the incision with fundal pressure. Mouth and nares are bulb suctioned. There is no evidence of a nuchal cord. With gentle fundal pressure with delivery the anterior shoulder and rest this 's body. This is a vigorous viable male Apgars are 9 and 9 delivery time is 1236 hrs. After delivery of the infant the umbilical cord is doubly clamped and cut appears to be trivascular. The infant is then handed off to the nurses in attendance. The placenta is then manually extracted intact. Does appear to be bilobed. This is sent to pathology. Uterus is then externalized and the uterine incision demarcated with Campo clamps. Lining is quite ratty but all tissue is been removed. Uterine incision then closed using 0 Vicryl running locked fashion 2 layers. Added [id number] stitches are placed as well. Bladder peritoneum was then reapproximated using a 3-0 Vicryl. Excess fluid is removed from the abdomen and pelvis. Uterus tubes and ovaries appear normal for term gestation. Uterus placed back into the abdomen. The parietal peritoneum was then identified and closed using 0 Vicryl running fashion. Rectus muscles are reapproximated in 0 Vicryl interrupted fashion. Fascial incision is then closed using 0 PDS. Fascial incision is intact and hemostatic. Subcutaneous tissue and reapproximated using 3-0 Vicryl. Skin is and closed using eriberto. All counts are correct 3. No complications. and mother taken the birthing room in satisfactory condition
[2020-10-16] MEDS: KETOROLAC 15 MG/ML 1 ML VIAL IVP PRN (17:58)
[2020-10-16] MEDS: SENNOSIDES-DOCUSATE SODIUM 1 EACH TAB PO SCH (22:22)
[2020-10-17] MEDS: LACTATED RINGERS 1,000 ML IV SCH ×2 (02:54→08:57)
[2020-10-17] MEDS: KETOROLAC 15 MG/ML 1 ML VIAL IVP PRN ×3 (03:02→17:15)
--- NOTE | 2020-10-17 06:03 | P.PNOBGPC ---
Subjective - Subjective Patient reports: Reports appetite normal, Reports voiding normally, Reports pain well controlled, Reports ambulating normally : doing well Objective - Vital Signs Latest vital signs: Vital Signs Temp Pulse Resp BP Pulse Ox 10/17/20 04:00 98.1 F 71 16 118/75 96 10/17/20 00:00 98.0 F 71 16 98/57 98 10/16/20 20:00 97.6 F 80 16 135/85 97 10/16/20 15:06 97.9 F 83 16 118/70 97 10/16/20 14:36 76 16 119/62 94 L 10/16/20 14:06 80 18 114/58 95 10/16/20 13:51 79 16 123/61 96 10/16/20 13:36 66 16 128/66 96 10/16/20 13:21 89 16 125/63 96 10/16/20 13:06 96.5 F L 61 16 138/61 96 10/16/20 10:28 98.0 F 105 H 18 131/82 96 Intake and Output 10/16/20 10/16/20 10/17/20 14:59 22:59 06:59 Output Total 1400 1000 Balance -1400 -1000 Output: Urine 1400 1000 Uretheral (Mccullough) 700 Other: Weight 93.44 kg - Exam Lungs: bilateral: normal Chest: Normal S1, Normal S2 Extremities: Present: normal Abdomen: Present: normal appearance, soft. Absent: distention, tenderness Incision: Present: normal, dry, intact Uterus: Present: normal, firm Assessment and Plan Assessment: Postoperative day #1. Patient is resting without complaints. She did have her catheter removed and has had been catheterized for retention but this is thought to be secondary to the Duramorph. Vital signs are stable and she is afebrile. Uterus is firm nontender and her incision is intact and dry. CBC is pending. Plan today is to continue routine postoperative care, currently ambulation, allow the patient to shower, advanced to regular diet, and check a CBC. (1) 39 weeks gestation of Current Visit: No Status: Acute Code(s): Z3A.39 - 39 WEEKS GESTATION OF SNOMED Code(s): 82862298 (2) Previous delivery affecting Current Visit: No Status: Acute Code(s): O34.219 - MATERNAL CARE FOR UNSP TYPE SCAR FROM PREVIOUS DEL SNOMED Code(s): 913788780
[2020-10-17 06:04] LABS: Basophils % (A) 0 %; Eosinophils % (A) 0 %; HCT 35.7 % (34.0-46.0); HGB 12.4 gm/dL (11.4-16.0); Lymphocytes # (A) 1.8 k/uL (1.0-4.8); Lymphocytes % (A) 13 %; MCH 31.5 pg (25.0-35.0); MCHC 34.7 g/dL (31.0-37.0); Mean Platelet Volume 7.9; Monocytes # (A) 0.8 k/uL (0-1.0); Monocytes % (A) 6 %; Neutrophils # (A) 11.1 k/uL (1.3-7.7); Neutrophils % (A) 80 %; Platelet Count 212 k/uL (150-450); RBC 3.93 m/uL (3.80-5.40); RDW 13.3 % (11.5-15.5); WBC 13.9 k/uL (3.8-10.6)
--- NOTE | 2020-10-17 07:01 | P.PN ---
Progress Note - Text Postoperative day 1 status post section under spinal anesthesia, and intrathecal morphine given for postoperative analgesia, patient doing well. Has some minor itching and has taken Benadryl x1, has not been able to use the bathroom yet, however she does feel the urge and will try again today. No saddle anesthesia. Patient had no headache, vital signs stable Assessment and plan = postop day 1 status post , doing well
[2020-10-17] MEDS: SENNOSIDES-DOCUSATE SODIUM 1 EACH TAB PO SCH (08:23)
[2020-10-17] MEDS: IBUPROFEN 600 MG TAB PO PRN (23:23)
[2020-10-18] MEDS: SENNOSIDES-DOCUSATE SODIUM 1 EACH TAB PO SCH ×2 (00:33→12:18)
--- NOTE | 2020-10-18 05:51 | P.PNOBGPC ---
Subjective - Subjective Patient reports: Reports appetite normal, Reports voiding normally, Reports pain well controlled, Reports ambulating normally : doing well Objective - Vital Signs Latest vital signs: Vital Signs Temp Pulse Resp BP Pulse Ox 10/18/20 00:00 98.4 F 98 16 113/67 99 10/17/20 16:00 98.1 F 90 16 113/67 95 10/17/20 12:30 97.9 F 86 17 100/71 97 10/17/20 08:00 97.9 F 73 16 103/60 96 Intake and Output 10/17/20 10/17/20 10/18/20 14:59 22:59 06:59 Intake Total 200 Output Total 2700 1000 Balance -2700 -800 Intake: Oral 200 Output: Urine 2700 1000 Uretheral (Mccullough) 1200 Other: # Voids 2 - Exam Lungs: bilateral: normal Chest: Normal S1, Normal S2 Extremities: Present: normal Abdomen: Present: normal appearance, soft. Absent: distention, tenderness Incision: Present: normal, dry, intact Uterus: Present: normal, firm - Labs Labs: Abnormal Lab Results - Last 24 Hours (Table) 10/17/20 Range/Units 05:39 WBC 13.9 H (3.8-10.6) k/uL Neutrophils # 11.1 H (1.3-7.7) k/uL Assessment and Plan Assessment: Post operative day #2. Patient is resting without complaints. Vital signs are stable and she is afebrile. Uterus is firm nontender and her incision is intact and dry. CBC yesterday was normal. Patient is tolerating regular diet ambulating and urinating without difficulty. Plan is to continue routine postoperative care. We'll most likely discharge home tomorrow. (1) 39 weeks gestation of Current Visit: No Status: Acute Code(s): Z3A.39 - 39 WEEKS GESTATION OF SNOMED Code(s): 37484252 (2) Previous delivery affecting Current Visit: No Status: Acute Code(s): O34.219 - MATERNAL CARE FOR UNSP TYPE SCAR FROM PREVIOUS DEL SNOMED Code(s): 292299680
[2020-10-18] MEDS: IBUPROFEN 600 MG TAB PO PRN ×2 (12:17→18:23)
[2020-10-18] MEDS: HYDROcodone/APAP 5-325MG 1 EACH TAB PO PRN ×2 (14:31→21:20)
[2020-10-19] MEDS: IBUPROFEN 600 MG TAB PO PRN ×4 (00:54→20:58)
[2020-10-19] MEDS: SENNOSIDES-DOCUSATE SODIUM 1 EACH TAB PO SCH ×3 (01:52→20:59)
[2020-10-19] MEDS: HYDROcodone/APAP 5-325MG 1 EACH TAB PO PRN ×2 (03:41→11:29)
--- NOTE | 2020-10-19 07:21 | P.PNOBGPC ---
Subjective - Subjective Patient reports: Reports appetite normal, Reports voiding normally, Reports pain well controlled, Reports ambulating normally : doing well Objective - Vital Signs Latest vital signs: Vital Signs Temp Pulse Resp BP Pulse Ox 10/19/20 00:00 98.0 F 78 16 126/77 100 10/18/20 16:00 98.3 F 62 16 118/75 10/18/20 08:00 98.0 F 62 16 115/70 Intake and Output 10/18/20 10/19/20 10/19/20 22:59 06:59 14:59 Other: # Voids 2 # Bowel Movements 2 - Exam Lungs: bilateral: normal Chest: Normal S1, Normal S2 Extremities: Present: normal Abdomen: Present: normal appearance, soft. Absent: distention, tenderness Incision: Present: normal, dry, intact Uterus: Present: normal, firm Assessment and Plan Assessment: Postoperative day #3. Patient continues to rest without complaints. Vital signs are stable she is afebrile. Uterus is firm nontender and her incision is intact and dry. My impression this is a normal postoperative course. Plan is to continue routine postoperative care discharge home later today. (1) 39 weeks gestation of Current Visit: No Status: Acute Code(s): Z3A.39 - 39 WEEKS GESTATION OF SNOMED Code(s): 43217855 (2) Previous delivery affecting Current Visit: No Status: Acute Code(s): O34.219 - MATERNAL CARE FOR UNSP TYPE SCAR FROM PREVIOUS DEL SNOMED Code(s): 291044383
--- NOTE | 2020-10-19 07:30 | P.DS ---
Providers Date of admission: 10/16/20 10:07 Expected date of discharge: 10/19/20 Attending physician: Eleuterio Bailey Primary care physician: Stated None - Discharge Diagnosis(es) (1) 39 weeks gestation of Current Visit: No Status: Acute (2) Previous delivery affecting Current Visit: No Status: Acute Hospital Course: Please see dictated H&P for intimate details of this patient's admission. Brief summary is a pleasant 34-year-old 2 para 1 female 39-2/7 weeks gestation admitted to labor and delivery for elective repeat section. Patient is admitted undergoes repeat low transverse section for viable male . Please see dictated operative note. Postoperative patient does well and on postoperative day #3 is felt be stable for discharge home follow up with me in 1 week. Procedures: Repeat low transverse section Patient Condition at Discharge: Good Plan - Discharge Summary Discharge Rx Participant: Yes New Discharge Prescriptions: New Ibuprofen [Motrin] 600 mg PO Q6HR PRN #30 tab PRN Reason: Mild Pain Or Fever >= 100.5 HYDROcodone/APAP 5-325MG [[place] 5-325] 1 each PO Q4HR PRN #18 tab PRN Reason: Moderate Pain No Action Pnv,Calcium 72/Iron/Folic Acid [ Plus Tablet] 1 tab PO DAILY Cetirizine HCl [Zyrtec] 1 tab PO ONCE Cholecalciferol [Vitamin D3 (25 Mcg = 1000 Iu)] 1,000 unit PO DAILY Omeprazole Magnesium [PriLOSEC OTC] 20 mg PO DAILY Aspirin [Adult Low Dose Aspirin EC] 81 mg PO DAILY Acetaminophen [Tylenol] 650 mg PO HS Discharge Medication List Pnv,Calcium 72/Iron/Folic Acid [ Plus Tablet] 1 tab PO DAILY 01/26/18 [History] Cetirizine HCl [Zyrtec] 1 tab PO ONCE 10/12/20 [History] Acetaminophen [Tylenol] 650 mg PO HS 10/15/20 [History] Aspirin [Adult Low Dose Aspirin EC] 81 mg PO DAILY 10/15/20 [History] Cholecalciferol [Vitamin D3 (25 Mcg = 1000 Iu)] 1,000 unit PO DAILY 10/15/20 [History] Omeprazole Magnesium [PriLOSEC OTC] 20 mg PO DAILY 10/15/20 [History] HYDROcodone/APAP 5-325MG [[place] 5-325] 1 each PO Q4HR PRN #18 tab 10/18/20 [Rx] Ibuprofen [Motrin] 600 mg PO Q6HR PRN #30 tab 10/18/20 [Rx] Follow up Appointment(s)/Referral(s): Eleuterio Bailey MD [STAFF PHYSICIAN] - 10/24/20 8:45 am (Please see me on November 27 at 10:15 AM.) Patient Instructions/Handouts: (DC) Activity/Diet/Wound Care/Special Instructions: No strenuous activity or heavy lifting for 6 weeks. Please call if any fever, chills, excessive vaginal bleeding, and/or abdominal pain. Discharge Disposition: HOME SELF-CARE
[2020-10-20] MEDS: HYDROcodone/APAP 5-325MG 1 EACH TAB PO PRN (00:36)
[2020-10-20] MEDS: IBUPROFEN 600 MG TAB PO PRN (03:30)
--- NOTE | 2020-10-20 07:58 | P.PNOBGPC ---
Subjective - Subjective Patient reports: Reports appetite normal, Reports voiding normally, Reports pain well controlled, Reports ambulating normally : doing well Objective - Vital Signs Latest vital signs: Vital Signs Temp Pulse Resp BP Pulse Ox 10/20/20 00:00 98.3 F 86 18 123/73 95 10/19/20 15:43 97.8 F 88 16 118/79 100 Intake and Output 10/19/20 10/20/20 10/20/20 22:59 06:59 14:59 Other: # Voids 1 2 - Exam Lungs: bilateral: normal Chest: Normal S1, Normal S2 Extremities: Present: normal Abdomen: Present: normal appearance, soft. Absent: distention, tenderness Incision: Present: normal, dry, intact Uterus: Present: normal, firm Assessment and Plan Assessment: Postoperative day #4. Patient is going to go home yesterday however her baby is required some phototherapy. Vital signs are stable and she is afebrile. Uterus is firm nontender she's having normal lochia. My impression is a normal postoperative course. Plan is to continue routine postoperative care discharge home today (1) 39 weeks gestation of Current Visit: No Status: Acute Code(s): Z3A.39 - 39 WEEKS GESTATION OF SNOMED Code(s): 96099522 (2) Previous delivery affecting Current Visit: No Status: Acute Code(s): O34.219 - MATERNAL CARE FOR UNSP TYPE SCAR FROM PREVIOUS DEL SNOMED Code(s): 725519167
[2020-10-20 09:36] VITALS: BP 118/74; PULSE 87; RESP 15; TEMP 98
[2020-10-20] MEDS: SENNOSIDES-DOCUSATE SODIUM 1 EACH TAB PO SCH (11:47)
== END 2020-10-20 13:15 | disposition home or self-care (01) | DRG 788 ==
LOC: 4FBP 10:07
PROVIDERS: ADMIT Obstetrics & Gynecology; ATTEND Obstetrics & Gynecology
PROC: 10D00Z1 Extraction of Products of Conception, Low, Open Approach (ICD-10-PCS; principal; 2020-10-16 12:00)
DX: O34.211 Maternal care for low transverse scar from previous cesarean delivery (principal); J45.990 Exercise induced bronchospasm; O43.192 Other malformation of placenta, second trimester; O99.62 Diseases of the digestive system complicating childbirth; O99.52 Diseases of the respiratory system complicating childbirth; N85.8 Other specified noninflammatory disorders of uterus; K21.9 Gastro-esophageal reflux disease without esophagitis; Z37.0 Single live birth; Z3A.39 39 weeks gestation of pregnancy; Z79.82 Long term (current) use of aspirin; Z79.899 Other long term (current) drug therapy; Z87.19 Personal history of other diseases of the digestive system; Z86.59 Personal history of other mental and behavioral disorders; Z98.890 Other specified postprocedural states; Z88.5 Allergy status to narcotic agent
CPT/HCPCS: 85025; 86850; 86900; 86901; 88307

== ENCOUNTER 2022-03-18 16:52 | Emergency (ER) | payer BC ==
[2022-03-18 16:59] VITALS: TEMP 98.1
[2022-03-18 17:11] LABS: Glucose,Whole Blood 84 mg/dL (75-99)
--- NOTE | 2022-03-18 17:20 | ED ---
Neuro HPI - General Chief Complaint: Neuro Symptoms/Deficit Stated Complaint: Facial numbness Time Seen by Provider: 03/18/22 17:06 Source: patient, RN notes reviewed Mode of arrival: ambulatory Limitations: no limitations - History of Present Illness Is the patient presenting with stroke symptoms?: No Initial Comments: 36-year-old female with a benign past medical history states she had the onset this morning of some facial tingling and numbness and later on in the afternoon she started developing some more numbness left side of her face and she believes some facial droop. No headache dizziness blurry vision nausea vomiting no weakness to her upper or lower extremities. She did have a recent diagnosis of COVID-19 approximately 3 weeks ago. No other current complaints no other modifying factors no history of stroke. - Related Data Home Medications: Home Medications Medication Instructions Recorded Confirmed Acetaminophen Tab [Tylenol Tab] 1,000 mg PO Q6HR PRN 03/18/22 03/18/22 Acetaminophen/Diphenhydramine 1 tab PO HS PRN 03/18/22 03/18/22 [Tylenol PM 500-25mg] Dextroamphetamine/Amphetamine 25 mg PO DAILY 03/18/22 03/18/22 [Adderall Xr] Sertraline [Zoloft] 50 mg PO DAILY 03/18/22 03/18/22 Previous Rx's Medication Instructions Recorded predniSONE [Deltasone] 40 mg PO BID #14 tab 03/18/22 valACYclovir [Valtrex] 1,000 mg PO TID #21 tablet 03/18/22 Allergies/Adverse Reactions: Allergies Allergy/AdvReac Type Severity Reaction Status Date / Time codeine Allergy Abdominal Verified 03/18/22 18:42 Pain Review of Systems ROS Statement: Those systems with pertinent positive or pertinent negative responses have been documented in the HPI. ROS Other: All systems not noted in ROS Statement are negative. General Exam - General Exam Comments Initial Comments: This is a well-developed molars awake alert oriented 3 female Limitations: no limitations General appearance: alert, in no apparent distress Head exam: Present: atraumatic, normocephalic, normal inspection Eye exam: Present: normal appearance, PERRL, EOMI. Absent: scleral icterus, conjunctival injection, periorbital swelling ENT exam: Present: normal exam, mucous membranes moist Neck exam: Present: normal inspection, full ROM, other (O2 sat JVD or bruits). Absent: tenderness, meningismus, lymphadenopathy Respiratory exam: Present: normal lung sounds bilaterally. Absent: respiratory distress, wheezes, rales, rhonchi, stridor Cardiovascular Exam: Present: regular rate, normal rhythm, normal heart sounds. Absent: systolic murmur, diastolic murmur, rubs, gallop, clicks GI/Abdominal exam: Present: soft, normal bowel sounds. Absent: distended, tenderness, guarding, rebound, rigid Extremities exam: Present: normal inspection, full ROM, normal capillary refill. Absent: tenderness, pedal edema, joint swelling, calf tenderness Back exam: Present: normal inspection Neurological exam: Present: alert, oriented X3, motor sensory deficit, other (Slight flattening of the left nasolabial fold slight lid lag on the left.) Psychiatric exam: Present: normal affect, normal mood Skin exam: Present: warm, dry, intact, normal color. Absent: rash Stroke MDM - Lab Data Result diagrams: 03/18/22 17:18 03/18/22 17:18 Lab Results 03/18/22 03/18/22 03/18/22 Range/Units 17:09 17:18 17:18 WBC 8.0 (3.8-10.6) k/uL RBC 4.54 (3.80-5.40) m/uL Hgb 14.3 (11.4-16.0) gm/dL Hct 42.4 (34.0-46.0) % MCV 93.4 (80.0-100.0) fL MCH 31.4 (25.0-35.0) pg MCHC 33.7 (31.0-37.0) g/dL RDW 13.1 (11.5-15.5) % Plt Count 273 (150-450) k/uL MPV 7.6 Neutrophils % 68 % Lymphocytes % 23 % Monocytes % 6 % Eosinophils % 1 % Basophils % 1 % Neutrophils # 5.5 (1.3-7.7) k/uL Lymphocytes # 1.9 (1.0-4.8) k/uL Monocytes # 0.5 (0-1.0) k/uL Eosinophils # 0.1 (0-0.7) k/uL Basophils # 0.1 (0-0.2) k/uL PT 10.0 (9.0-12.0) sec INR 0.9 (<1.2) APTT 23.7 (22.0-30.0) sec Sodium (137-145) mmol/L Potassium (3.5-5.1) mmol/L Chloride (98-107) mmol/L Carbon Dioxide (22-30) mmol/L Anion Gap mmol/L BUN (7-17) mg/dL Creatinine (0.52-1.04) mg/dL Est GFR (CKD-EPI)AfAm (>60 ml/min/1.73 sqM) Est GFR (CKD-EPI)NonAf (>60 ml/min/1.73 sqM) Glucose (74-99) mg/dL POC Glucose (mg/dL) 84 (75-99) mg/dL POC Glu Drug Inspector ID Anahi Florence Calcium (8.4-10.2) mg/dL Magnesium (1.6-2.3) mg/dL Total Bilirubin (0.2-1.3) mg/dL AST (14-36) U/L ALT (4-34) U/L Alkaline Phosphatase (38-126) U/L Troponin I (0.000-0.034) ng/mL Total Protein (6.3-8.2) g/dL Albumin (3.5-5.0) g/dL TSH (0.465-4.680) mIU/L 03/18/22 03/18/22 Range/Units 17:18 17:18 WBC (3.8-10.6) k/uL RBC (3.80-5.40) m/uL Hgb (11.4-16.0) gm/dL Hct (34.0-46.0) % MCV (80.0-100.0) fL MCH (25.0-35.0) pg MCHC (31.0-37.0) g/dL RDW (11.5-15.5) % Plt Count (150-450) k/uL MPV Neutrophils % % Lymphocytes % % Monocytes % % Eosinophils % % Basophils % % Neutrophils # (1.3-7.7) k/uL Lymphocytes # (1.0-4.8) k/uL Monocytes # (0-1.0) k/uL Eosinophils # (0-0.7) k/uL Basophils # (0-0.2) k/uL PT (9.0-12.0) sec INR (<1.2) APTT (22.0-30.0) sec Sodium 136 L (137-145) mmol/L Potassium 3.9 (3.5-5.1) mmol/L Chloride 104 (98-107) mmol/L Carbon Dioxide 22 (22-30) mmol/L Anion Gap 10 mmol/L BUN 12 (7-17) mg/dL Creatinine 0.82 (0.52-1.04) mg/dL Est GFR (CKD-EPI)AfAm >90 (>60 ml/min/1.73 sqM) Est GFR (CKD-EPI)NonAf >90 (>60 ml/min/1.73 sqM) Glucose 97 (74-99) mg/dL POC Glucose (mg/dL) (75-99) mg/dL POC Glu Drug Inspector ID Calcium 9.2 (8.4-10.2) mg/dL Magnesium 1.9 (1.6-2.3) mg/dL Total Bilirubin 0.9 (0.2-1.3) mg/dL AST 31 (14-36) U/L ALT 25 (4-34) U/L Alkaline Phosphatase 55 (38-126) U/L Troponin I <0.012 (0.000-0.034) ng/mL Total Protein 7.9 (6.3-8.2) g/dL Albumin 4.6 (3.5-5.0) g/dL TSH 0.899 (0.465-4.680) mIU/L - NIH Stroke Scale 1a. Level of Consciousness: (0) alert 1b. LOC Questions: (0) answers correctly 1c. LOC Commands: (0) performs tasks correctly 2. Best Gaze: (0) normal 3. Visual: (0) no visual loss 4. Facial Palsy: (1) minor paralysis 5a. Motor Arm Left: (0) no drift 5b. Motor Arm Right: (0) no drift 6a. Motor Leg Left: (0) no drift 6b. Motor Leg Right: (0) no drift 7. Limb Ataxia: (0) absent 8. Sensory: (0) normal 9. Best Language: (0) no aphasia 10. Dysarthria: (0) normal 11. Extinction/Inattention: (0) no abnormality - Medical Decision Making Patient did get resolution of her symptoms she has had some slight intermittent numbness to the left side of her face and this 10 CAT scans were all negative for acute processes this may represent an atypical presentation of Nicolas's palsy she'll be treated as such she is aware that CVA - EKG Data -: EKG Interpreted by Me EKG shows normal: sinus rhythm (Sinus rhythm of 95. Interval 128 QRS duration 97 QT since QTC 358/410 possible left atrial enlargement possible right ventricular conduction delay) Past Medical History Past Medical History: No Reported History Additional Past Medical History / Comment(s): Patient has a history of attention deficit disorder and irritable bowel syndrome. History of Any Multi-Drug Resistant Organisms: None Reported Past Surgical History: Section, Hernia Repair Additional Past Surgical History / Comment(s): Inguinal hernia repair Past Anesthesia/Blood Transfusion Reactions: No Reported Reaction Additional Past Anesthesia/Blood Transfusion Reaction / Comment(s): hx of hard time waking up Past Psychological History: ADD/ADHD, Anxiety, Depression Smoking Status: Never smoker Past Alcohol Use History: Occasional Past Drug Use History: None Reported - Past Family History Mother Family Medical History: No Reported History Course Vital Signs 03/18/22 03/18/22 03/18/22 16:55 17:20 18:19 Temperature 98.1 F Pulse Rate 95 96 91 Respiratory 20 18 14 Rate Blood Pressure 150/87 134/97 146/98 O2 Sat by Pulse 100 99 90 L Oximetry - Reevaluation(s) Reevaluation #1: 03/18/22 18:58 Reevaluation patient reveals her symptoms have resolved except for the slight numbness to the left side of her health. Her confirms Ur is no more evidence of left facial asymmetry. CT plane brain is negative. Disposition Clinical Impression: Nicolas's palsy Disposition: HOME SELF-CARE Condition: Good Instructions (If sedation given, give patient instructions): Nicolas Palsy (ED), Transient Ischemic Attack (ED) Prescriptions: predniSONE [Deltasone] 40 mg PO BID #14 tab valACYclovir [Valtrex] 1,000 mg PO TID #21 tablet Is patient prescribed a controlled substance at d/c from ED?: No Referrals: Benja Rice MD [Primary Care Provider] - 1-2 days Decision Date: 03/18/22 Decision Time: 20:29
[2022-03-18 17:32] LABS: Basophils # (A) 0.1 k/uL (0-0.2); Basophils % (A) 1 %; Eosinophils # (A) 0.1 k/uL (0-0.7); Eosinophils % (A) 1 %; HCT 42.4 % (34.0-46.0); HGB 14.3 gm/dL (11.4-16.0); Lymphocytes # (A) 1.9 k/uL (1.0-4.8); Lymphocytes % (A) 23 %; MCH 31.4 pg (25.0-35.0); MCHC 33.7 g/dL (31.0-37.0); MCV 93.4 fL (80.0-100.0); Mean Platelet Volume 7.6; Monocytes # (A) 0.5 k/uL (0-1.0); Monocytes % (A) 6 %; Neutrophils # (A) 5.5 k/uL (1.3-7.7); Neutrophils % (A) 68 %; Platelet Count 273 k/uL (150-450); RBC 4.54 m/uL (3.80-5.40); RDW 13.1 % (11.5-15.5)
[2022-03-18 17:45] LABS: INR 0.9 (<1.2); Partial Thromboplastin Time 23.7 sec (22.0-30.0)
[2022-03-18 17:48] LABS: Potassium 3.9 mmol/L (3.5-5.1)
[2022-03-18 17:49] LABS: ALT 25 U/L (4-34); AST 31 U/L (14-36); African American GFR (CKD) >90 (>60 ml/min/1.73 sqM); Albumin 4.6 g/dL (3.5-5.0); Alkaline Phosphatase 55 U/L (38-126); Anion Gap 10 mmol/L; Blood Urea Nitrogen 12 mg/dL (7-17); Calcium 9.2 mg/dL (8.4-10.2); Carbon Dioxide 22 mmol/L (22-30); Chloride 104 mmol/L (98-107); Glucose 97 mg/dL (74-99); Magnesium 1.9 mg/dL (1.6-2.3); Non-African American GFR(CKD) >90 (>60 ml/min/1.73 sqM); Sodium 136 mmol/L (137-145); Total Bilirubin 0.9 mg/dL (0.2-1.3); Total Protein 7.9 g/dL (6.3-8.2)
--- NOTE | 2022-03-18 18:20 | CT ---
EXAMINATION TYPE: CT brain wo con CT DLP: 1091.4 mGycm, Automated exposure control for dose reduction was used. DATE OF EXAM: 03/18/2022 5:35 PM COMPARISON: None. CLINICAL INDICATION:Female, 36 years old with history of Neuro deficit, acute, stroke suspected, c/o facial numbness TECHNIQUE: Brain: Multiple axial CT images of the brain were obtained without IV contrast. FINDINGS: Brain: Extra-axial spaces: No abnormal extra-axial fluid collections. Ventricular system: Within normal limits Cerebral parenchyma: No acute intraparenchymal hemorrhage or mass effect. The edwards-white junction is well differentiated. Cerebellum: Unremarkable. Mass effect: No evidence of midline shift. Intracranial vasculature: unremarkable Soft tissues: Normal. Calvarium/osseous structures: No depressed skull fracture. Paranasal sinuses and mastoid air cells: No significant paranasal sinus disease. Visualized orbits: Orbital contents are intact. IMPRESSION: No acute intracranial process.
--- NOTE | 2022-03-18 18:21 | XR ---
EXAMINATION TYPE: XR chest 2V DATE OF EXAM: 03/18/2022 5:39 PM COMPARISON: None TECHNIQUE: XR chest 2V Frontal and lateral views of the chest. CLINICAL INDICATION:Female, 36 years old with history of altered mental status; FINDINGS: Lungs/Pleura: There is no evidence of pleural effusion, focal consolidation, or pneumothorax. Pulmonary vascularity: Unremarkable. Heart/mediastinum: Cardiomediastinal silhouette is unremarkable. Musculoskeletal: No acute osseous pathology. IMPRESSION: No acute cardiopulmonary disease/process.
--- NOTE | 2022-03-18 20:00 | CT ---
EXAMINATION TYPE: CT angio head neck CT DLP: 494 mGycm, Automated exposure control for dose reduction was used. DATE OF EXAM: 03/18/2022 7:42 PM COMPARISON: None. CLINICAL INDICATION:Female, 36 years old with history of Neuro deficit, acute, stroke suspected. TECHNIQUE: Axially acquired helical CT angiogram of the head and neck was obtained with contrast util izing 75 cc of Isovue-370 administered intravenously. Axial images are supplemented with 3D reconstru ctions which were post-processed at an independent workstation. NASCET criteria used. FINDINGS: CTA HEAD: No evidence of acute intracranial hemorrhage, mass effect, or midline shift. The ventricles, sulci, a nd cisterns are unremarkable. The visualized portions of the internal carotid arteries, middle cerebral arteries, anterior cerebral arteries, and posterior cerebral arteries are patent. The basilar and vertebral arteries are patent. CTA NECK: Right Carotid System: The common carotid artery and external carotid artery are patent. The carotid bifurcation demonstrate s no evidence of hemodynamically significant stenosis. The remaining portions of the internal carotid artery demonstrate normal size without significant narrowing. Left Carotid System: The common carotid artery and external carotid artery are patent. The carotid bifurcation demonstrate s no evidence of hemodynamically significant stenosis. The remaining portions of the internal carotid artery demonstrate normal size without significant narrowing. Vertebral arteries are patent without evidence hemodynamically significant stenosis. There is a three-vessel aortic arch. The origins of the great vessels are patent. No evidence of hemo dynamically significant stenosis. IMPRESSION: 1. No evidence of dissection of the cervical internal carotid arteries or vertebral arteries or any e vidence of significant stenosis at the carotid bifurcations. 2. No evidence of high-grade stenosis or intracranial aneurysm.
[2022-03-18] MEDS ORDERED: valACYclovir 500 MG TAB PO STA (20:19)
[2022-03-18] MEDS ORDERED: predniSONE 50 MG TAB PO STA (20:20)
[2022-03-18 21:04] VITALS: BP 133/93; PULSE 92; RESP 18
== END 2022-03-18 21:05 | disposition home or self-care (01) ==
LOC: EC 16:52
DX: G51.0 Bell's palsy (principal); Z88.5 Allergy status to narcotic agent
CPT/HCPCS: 36415; 80053; 84443; 83735; 84484; 85025; 85610; 85730; 71046; 70496; 70450; 70498; 99285; J7512; Q9967

== ENCOUNTER → 2023-07-30 | Outpatient (CLI) | payer BC ==
--- NOTE | 2023-07-31 21:26 | MM ---
Reason for Exam: Screening (asymptomatic). Patient History: Menarche at age 12. First Full-Term at age 34. Late child-bearing (after 30). Premenopausal. Hormonal Contraceptives, from age 19 until age 31. Risk Values: Carolann 5 year model risk: 0.5%. NCI Lifetime model risk: 15.1%. Tissue Density: The breast tissue is heterogeneously dense. This may lower the sensitivity of mammography. Findings: Analyzed By CAD. There is a reniform nodule upper outer quadrant left breast compatible with a benign intramammary lymph node. No significant mass, suspicious microcalcification, or other discrete abnormality is seen. Overall Assessment: Benign, BI-RAD 2 Management: Screening Mammogram of both breasts in 1 year. . Patient should continue monthly self-breast exams. A clinical breast exam by your physician is recommended on an annual basis. This exam should not preclude additional follow-up of suspicious palpable abnormalities. Note on Carolann scores and lifetime risk: 1. A Carolann score greater than 3% is considered moderate risk. If this is the case, consider specialist referral to assess eligibility for a risk reducing agent. 2. If overall lifetime risk for the development of breast cancer is 20% or higher, the patient may qualify for future screening with alternating mammogram and breast MRI. Electronically signed and approved by: Kathrin Hong M.D. Radiologist
== END | disposition home or self-care (01) ==
LOC: RADMAMWWP 07:11
PROVIDERS: ATTEND Obstetrics & Gynecology
DX: Z12.31 Encounter for screening mammogram for malignant neoplasm of breast (principal)
CPT/HCPCS: 77063; 77067

== ENCOUNTER → 2025-01-31 | Outpatient (CLI) | payer BC ==
--- NOTE | 2025-01-31 11:58 | MM ---
Reason for Exam: Clinical finding. Last mammogram was performed 1 year(s) and 6 month(s) ago. Patient History: Menarche at age 12. First Full-Term at age 34. Late child-bearing (after 30). Premenopausal. Hormonal Contraceptives, from age 19 until age 31. Risk Values: Carolann 5 year model risk: 0.7%. NCI Lifetime model risk: 14.9%. Tissue Density: The breasts are heterogeneously dense, which may obscure small masses. Findings: Analyzed By CAD. Benign-appearing bilateral axillary lymph nodes are redemonstrated. No suspicious new mass or distortion in either breast. Overall Assessment: Negative, BI-RAD 1 Management: Screening Mammogram of both breasts at age 41. Managed clinically patient's symptoms. If nipple discharge recurs advise clinical follow-up to determine if patient may benefit with additional imaging evaluation such as ultrasound. Results were given to the patient verbally at the time of exam. Patient should continue monthly self-breast exams. A clinical breast exam by your physician is recommended on an annual basis. This exam should not preclude additional follow-up of suspicious palpable abnormalities. Note on Carolann scores and lifetime risk: 1. A Carolann score greater than 3% is considered moderate risk. If this is the case, consider specialist referral to assess eligibility for a risk reducing agent. 2. If overall lifetime risk for the development of breast cancer is 20% or higher, the patient may qualify for future screening with alternating mammogram and breast MRI. [facility], , 01/31/2025 11:56 AM. Electronically signed and approved by: Krishna Reis M.D.
== END | disposition home or self-care (01) ==
LOC: RADMAMWWP 11:31
PROVIDERS: ATTEND Family Medicine
DX: N64.52 Nipple discharge (principal); R92.333 Mammographic heterogeneous density, bilateral breasts; Z92.0 Personal history of contraception
CPT/HCPCS: 77062; 77066